=== PATIENT | female | born 1940 | race Caucasian/White ===

== ENCOUNTER 2017-01-08 12:01 | Emergency (ER) | payer MEDICARE ==
--- NOTE | 2017-01-08 12:09 | ED.PDOC ---
History of Present Illness - General Chief Complaint: Problem Stated Complaint: urinary frequency Time Seen by Provider: 01/08/17 12:05 Source: patient, RN notes reviewed, family Additional Information: Pt complaining of intermittent dry heaves with nausea, right lower quadrant abdominal discomfort, urinary frequency and foul smelling urine for the past few days. Also, she reports some baseline shortness of breath for which she takes inhaled steroids as well as prn bronchodilators. She states she forgot her albuterol at home. Pt thinks she may have a urinary tract infection and she would also like to know what is causing her abdominal pain. She reports normal bowel movements with most recent BM about 3 hours prior to arrival. - History of Present Illness Timing/Duration: getting worse - over the past few days Quality: moderate, sharpness Onset Location: RLQ Radiation: none Activites at Onset: none Prior abdominal problems: similar symptoms Allergies/Adverse Reactions: Allergies Butorphanol [From Stadol] Allergy (Verified 08/31/14 16:52) Home Medications: Ambulatory Orders Albuterol Sulfate [Proair Hfa] 2 puff INH Q6H PRN 01/08/17 Amlodipine Besylate [Norvasc] 2.5 mg PO DAILY 01/08/17 Aspirin [Aspirin Adult Low Dose] 81 mg PO DAILY 01/08/17 Budesonide-Formoterol Fumarate [Symbicort] 1 aer IN BID 01/08/17 Nitrofurantoin Monohydrate Mac [Macrobid] 100 mg PO BID #14 cap 01/08/17 Nortriptyline HCl 25 mg PO BEDTIME 01/08/17 Ondansetron Odt [Zofran ODT] 4 mg PO Q6HR PRN #20 tab 01/08/17 Valsartan-Hydrochlorothiazide [Valsartan/Hydrochlorothia 160-12.5 mg] 1 tab PO DAILY 01/08/17 Venlafaxine HCl [Venlafaxine HCl ER] 150 mg PO BEDTIME 01/08/17 Review of Systems - Review of Systems Constitutional: States: no symptoms reported EENTM: States: no symptoms reported Respiratory: States: see HPI, cough, short of breath Cardiology: States: no symptoms reported Gastrointestinal/Abdominal: States: see HPI, abdominal pain, nausea, vomiting Genitourinary: States: see HPI, dysuria, frequency Musculoskeletal: States: no symptoms reported Skin: States: no symptoms reported Neurological: States: no symptoms reported Endocrine: States: no symptoms reported Hematologic/Lymphatic: States: no symptoms reported Past Medical History (General) - Patient Medical History Hx Seizures: No Hx Stroke: No Hx Dementia: No Hx Asthma: Yes Hx of COPD: Yes Hx Cardiac Disorders: No Hx Congestive Heart Failure: No Hx Pacemaker: No Hx Hypertension: Yes Hx Thyroid Disease: No Hx Diabetes: No Hx Gastroesophageal Reflux: No Hx Renal Disease: No Hx Cancer: No Hx of HIV: No Hx Hepatitis C: No Hx MRSA: No - Vaccination History Hx Tetanus, Diphtheria Vaccination: Yes - Social History Hx Tobacco Use: Yes - Female History Patient : No Family Medical History - Family History Mother Family History: No Known Physical Exam - Physical Exam General Appearance: Alert, Frail, No apparent distress Eyes, Ears, Nose, Throat Exam: normal ENT inspection, pharynx normal Neck: non-tender, full range of motion, supple, normal inspection Cardiovascular/Respiratory: normal peripheral pulses, tachycardia - mild, accessory muscle use - mild, wheezing - diffuse Gastrointestinal/Abdominal: soft, tenderness - mild to moderate in RLQ Back Exam: normal inspection, no CVA tenderness Extremity: normal range of motion, non-tender, normal inspection Neurologic: air grinder II-XII nml as tested, no motor/sensory deficits, alert, normal mood/affect, oriented x 3 Skin Exam: normal color Lymphatic: no adenopathy Progress - Progress Progress: 01/08/17 13:40 Pt with signs and symptoms consistent with cystitis. Will obtain U/A and Urine Culture to confirm. Dyspnea and wheezing improved with breathing treatment. Given h/o rlq pain and h/o prior abdominal surgeries, will assess further with CT Scan for any evidence of gross pathology such as obstruction or diverticulitis to explain symptoms. - Results/Orders Results/Orders: 01/08/17 12:16 URINE CULTURE W/COLONY COUNT Stat 01/08/17 12:48 Sodium Chloride 0.9% 1000ML [Ns 1000 ml] 1,000 ml IVS ONCE 01/08/17 12:49 Hold Metformin x 48Hrs [id number] Abdomen/Pelvis w/Contrast [CT] Stat Laboratory Results - last 24 hr 01/08/17 01/08/17 12:16 12:57 WBC 12.3 H RBC 4.40 Hgb 13.3 Hct 39.7 MCV 90.1 MCH 30.3 MCHC 33.6 RDW 13.3 Plt Count 205 MPV 8.3 Absolute Neuts (auto) 8.50 H Absolute Lymphs (auto) 2.10 Absolute Monos (auto) 1.50 H Absolute Eos (auto) 0.20 Absolute Basos (auto) 0.10 Neutrophils % 69.3 Lymphocytes % 16.7 L Monocytes % 11.9 H Eosinophils % 1.6 Basophils % 0.5 Sodium 129 L Potassium 3.7 Chloride 94 L Carbon Dioxide 25 Anion Gap 13.7 BUN 28 H Creatinine 1.34 H BUN/Creatinine Ratio 20.9 H Random Glucose 121 H Serum Osmolality 265.7 L Calcium 9.2 Total Bilirubin 0.8 AST 21 ALT 16 Alkaline Phosphatase 115 Serum Total Protein 7.5 Albumin 4.2 Globulin 3.3 Albumin/Globulin Ratio 1.3 Urine Color Yellow Urine Appearance Cloudy Urine pH 6.0 Ur Specific [place] 1.015 Urine Protein Negative Urine Glucose (UA) Negative Urine Ketones Negative Urine Blood Trace-intact H Urine Nitrite Positive H Urine Bilirubin Negative Urine Urobilinogen 0.2 Ur Leukocyte Esterase Small H Urine RBC 1-3 Urine WBC 5-10 H Ur Epithelial Cells 1-3 Urine Bacteria 3+ H - EKG/XRAY/CT CT: Abd/Pelvis w/IV Contrast-see report for details. No evid of diverticulitis. Departure - Departure Clinical Impression: Chronic bronchitis, obstructive Urinary tract infection Qualifiers: Urinary tract infection type: acute cystitis Hematuria presence: without hematuria Qualifier Code: (N30.00) Acute cystitis without hematuria Time of Disposition: 14:10 Disposition: Discharge to Home or Self Care Condition: Good Instructions: DI for Urinary Tract Infection (UTI) Referrals: Aisha Soto NP [Primary Care Provider] - 1-2 Weeks Prescriptions: Ondansetron Odt [Zofran ODT] 4 mg PO Q6HR PRN #20 tab PRN Reason: Nausea/Vomiting Nitrofurantoin Monohydrate Mac [Macrobid] 100 mg PO BID #14 cap Home Medications: Ambulatory Orders Albuterol Sulfate [Proair Hfa] 2 puff INH Q6H PRN 01/08/17 Amlodipine Besylate [Norvasc] 2.5 mg PO DAILY 01/08/17 Aspirin [Aspirin Adult Low Dose] 81 mg PO DAILY 01/08/17 Budesonide-Formoterol Fumarate [Symbicort] 1 aer IN BID 01/08/17 Nitrofurantoin Monohydrate Mac [Macrobid] 100 mg PO BID #14 cap 01/08/17 Nortriptyline HCl 25 mg PO BEDTIME 01/08/17 Ondansetron Odt [Zofran ODT] 4 mg PO Q6HR PRN #20 tab 01/08/17 Valsartan-Hydrochlorothiazide [Valsartan/Hydrochlorothia 160-12.5 mg] 1 tab PO DAILY 01/08/17 Venlafaxine HCl [Venlafaxine HCl ER] 150 mg PO BEDTIME 01/08/17 Additional Instructions: Stay well hydrated with water - at least 1 to 2 liters a day. Take medicine as prescribed. Return to ER if condition worsens. Continue inhaler medicine as previously prescribed.
[2017-01-08] MEDS ORDERED: IPRATROPIUM/ALBUTEROL 3 ML VIAL NEB ONE (12:16)
[2017-01-08] MEDS ORDERED: SODIUM CHLORIDE 0.9% 1000ML 1,000 ML IVS ONE (12:48)
[2017-01-08] MEDS ORDERED: ONDANSETRON INJ 4 MG/2 ML VIAL IV ONE (12:48)
--- NOTE | 2017-01-08 13:59 | CT ---
PROCEDURE: Abdomen/Pelvis w/Contrast HISTORY: right lower quadrant abd pain Indication: Same as above Comparison: None . Technique: CT of the abdomen and pelvis was done with intravenous contrast. Images were obtained from the lung base to the level of the pubic symphysis in axial plane, followed by orthogonal sagittal and coronal reconstruction. Oral contrast was not given for the study. The patient was injected with contrast intravenously, without any documented immediate adverse reactions. FINDINGS: Images through the lung bases show mild parenchymal scarring in the lingula of the left lung and the left lower lobe of the lung. There is presence of a small hiatal hernia The liver, gallbladder, pancreas, spleen and the bilateral adrenal glands appear unremarkable. Benign cortical cysts are seen in the right kidney. The bilateral kidneys otherwise enhance with contrast in a normal fashion. The urinary bladder is unremarkable . The bilateral ureters and the bilateral periureteral soft tissues and fat planes are unremarkable. The small bowel appears unremarkable, without any evidence of small bowel obstruction or bowel wall thickening. A normal or an inflamed appendix is not seen. However there is no pericecal inflammatory change The ileocecal junction appears unremarkable. There is no CT evidence of acute colonic diverticulitis or colitis or large bowel obstruction. There is large bowel diverticulosis. The splenic and portal veins are of normal caliber, without any filling defects. There is no pathological lymphadenopathy in the retroperitoneum or in the pelvic region. There is no evidence of free fluid or free air in the abdomen or the pelvic region. There is no clinically significant abdominal aortic aneurysm. There is no clinically significant inguinal or ventral hernia. The visualized lumbar spine shows multilevel degenerative change . The paravertebral soft tissues are unremarkable. The remainder of the pelvic structures are unremarkable. IMPRESSION: A normal or an inflamed appendix is not seen. However there is no pericecal inflammatory change. There is large bowel diverticulosis without CT evidence of acute diverticulitis. There is presence of a small hiatal hernia Location of Interpretation: Teleradiology Electronically signed by: Chilango Pettit MD 01/08/2017 1:58 PM TRENCH DIGGING MACHINE OPERATOR
[2017-01-08 14:16] VITALS: TEMP 98.2
[2017-01-08 14:35] VITALS: BP 125/76; O2SAT 95
== END 2017-01-08 14:35 | disposition home or self-care (01) ==
LOC: ER 12:01
DX: N30.00 Acute cystitis without hematuria (principal); J44.9 Chronic obstructive pulmonary disease, unspecified; I10 Essential (primary) hypertension; R11.2 Nausea with vomiting, unspecified; Z79.899 Other long term (current) drug therapy; Z79.82 Long term (current) use of aspirin; Z88.8 Allergy status to other drugs, medicaments and biological substances; Z87.891 Personal history of nicotine dependence
CPT/HCPCS: 36415; 74177; 80053; 81001; 85025; 87086; 87088; 87186; 94640; J2405; J7030; J7620

== ENCOUNTER → 2017-02-10 | Outpatient (CLI) | payer MEDICARE | END | disposition home or self-care (01) | LOC: LAB.O 13:36 | PROVIDERS: ATTEND Nurse Practitioner Family | DX: N39.0 Urinary tract infection, site not specified (principal) ==

== ENCOUNTER → 2017-02-28 | Outpatient (CLI) | payer MEDICARE | END | disposition home or self-care (01) | LOC: GMAB 14:39 | PROVIDERS: ATTEND Family Medicine | DX: I10 Essential (primary) hypertension (principal) ==

== ENCOUNTER → 2017-03-10 | Outpatient (CLI) | payer MEDICARE ==
--- NOTE | 2017-03-10 10:34 | MAM ---
History: Well woman exam. Date of exam: 03/10/2017 Services provided: Bilateral full field digital screening mammography. CAD, the images were reviewed with R2 computer aided detection. FINDINGS: Glandular tissue is scattered glandular contour. No prior exam is available for comparison. 9 mm nodule right breast 5-6 o'clock approximately 10 to 11 cm from the nipple. Biopsy clip left breast 4:00. Grouped microcalcifications left breast 1:00. No associated distortion or soft tissue density. These are proximal three 6 to 7 cm from the nipple. IMPRESSION: Incomplete study Recommendation: True lateral view left breast with spot compression magnification views 1:00. Directed right breast sonography retroareolar 6:00, deep within the glandular tissue. BIRAD CATEGORY: 0 INCOMPLETE Electronically signed by: Michelle Quiles MD 03/10/2017 10:34 AM CDT
== END ==
LOC: MAMMO 07:38
PROVIDERS: ATTEND Family Medicine
DX: Z12.31 Encounter for screening mammogram for malignant neoplasm of breast (principal)

== ENCOUNTER → 2017-05-17 | Outpatient (CLI) | payer MEDICARE | LOC: YCFC.O 06:59 | PROVIDERS: ATTEND Nurse Practitioner Family | DX: E78.00 Pure hypercholesterolemia, unspecified (principal); N39.0 Urinary tract infection, site not specified; Z13.29 Encounter for screening for other suspected endocrine disorder ==

== ENCOUNTER → 2017-05-18 | Outpatient (CLI) | payer MEDICARE ==
--- NOTE | 2017-05-18 15:52 | MAM ---
EXAM DESCRIPTION: 3D Diagnostic, Left CLINICAL HISTORY: 76 yearsFemaleABNORMAL MAMMO . Possible nodule in the posterior inferior right breast. Abnormal calcifications central left breast.. COMPARISON: Digital screening bilateral examination 03/10/2017.. Report from prior examination also reviewed. TECHNIQUE: Bilateral CC and LM projection full-field images, 3-D tomosynthesis digital mammographic technique. Also bilateral synthesized CC/ MLO full-field images. Digital two-dimensional spot magnification images, central left breast. CAD not utilized. FINDINGS: The breast parenchymal density pattern is: Almost entirely fatty. No skin thickening or nipple retraction . Predominantly rounded group of calcifications, 230 clock position middle third left breast, 10 cm from the nipple. No associated focal asymmetry or mass density. The lesion at the 600 clock position of the posterior third of the right breast, is on the skin surface of the breast where it joins the abdominal wall. This is a skin mole similar color to the surrounding skin. No associated microcalcifications. IMPRESSION: BI-RADS CATEGORY: 2 - BENIGN FINDINGS. FOLLOW UP: Return to routine digital bilateral screening, one year interval from 2017. Written communication explaining the findings and follow-up, will be mailed to the patient and referring health care provider. According to the [employer], yearly mammograms are recommended starting at age 40 and continuing as long as a woman is in good health. Any breast change noted on a breast self-exam should be reported promptly to the patient's healthcare provider. Breast MRI is recommended for women with an approximately 20-25% or greater lifetime risk of breast cancer, including women with a strong family history of breast or ovarian cancer and women who have been treated for Hodgkin's disease. A negative mammographic report should not delay tissue diagnosis in patients with significant clinical history or physical findings. Extremely dense breast tissue limits the sensitivity of digital mammography. Electronically signed by: Rohit Quintana MD 05/18/2017 3:51 PM CDT Workstation: [id number]
== END ==
LOC: MAMMO 14:19
PROVIDERS: ATTEND Family Medicine
DX: R92.2 Inconclusive mammogram (principal)

== ENCOUNTER 2017-08-15 20:35 | Emergency (ER) | payer MEDICARE ==
[2017-08-15 21:01] VITALS: TEMP 98.4; O2SAT 94
--- NOTE | 2017-08-15 22:06 | CT ---
EXAM DESCRIPTION: Head CLINICAL HISTORY: fall with left temporal hematoma COMPARISON: None available TECHNIQUE: Axial CT images of the head obtained from the skull apex to the foramen magnum obtained without contrast. FINDINGS: No evidence of acute intracranial hemorrhage. No mass, mass effect, shift of the midline, abnormal extra-axial fluid collection, or CT evidence of acute ischemic change. Scattered areas of hypodensity throughout the supratentorial white matter suggestive of chronic white matter ischemic change. Calcifications O of the midline falx. Mild prominence of the ventricular system and sulcal spaces suggesting mild cerebral and cerebellar atrophy. Visualized paranasal sinuses demonstrate mild mucosal thickening of the ethmoid air cells. Mastoid air cells are well aerated. Atherosclerotic calcification of the intracranial internal carotid arteries. Visualized orbits and globes are unremarkable. Contusion and edema within the left frontal scalp soft tissues. No skull fracture identified. IMPRESSION: 1. No evidence of acute intracranial abnormality. 2. Contusion within the left frontal scalp soft tissues. This exam was performed according to our departmental dose-optimization program, which includes automated exposure control, adjustment of the mA and/or kV according to patient size and/or use of iterative reconstruction technique. Electronically signed by: Otoniel Foster 08/15/2017 10:05 PM CDT
--- NOTE | 2017-08-15 22:26 | ED.PDOC ---
History of Present Illness - General Chief Complaint: Head Injury Stated Complaint: tripped, hit head on wall Time Seen by Provider: 08/15/17 20:36 Source: patient Exam Limitations: no limitations - History of Present Illness Initial Comments: the patient is a 77-year-old female presenting to the emergency room secondary to falling in her house and hitting her left temporal area against a wall. No neck pain. No loss of consciousness. She didn't feel dazed for about a minute. No vomiting. She does have a significant hematoma over the left temporal area. No laceration.no neck pain Timing/Duration: momentarily Severity: moderate Improving Factors: nothing Worsening Factors: nothing Associated Symptoms: headaches Allergies/Adverse Reactions: Allergies Butorphanol [From Stadol] Allergy (Verified 08/15/17 21:01) Home Medications: Ambulatory Orders Albuterol Sulfate [Proair Hfa] 2 puff INH Q6H PRN 01/08/17 Amlodipine Besylate [Norvasc] 2.5 mg PO DAILY 01/08/17 Aspirin [Aspirin Adult Low Dose] 81 mg PO DAILY 01/08/17 Budesonide-Formoterol Fumarate [Symbicort] 1 aer IN BID 01/08/17 Nitrofurantoin Monohydrate Mac [Macrobid] 100 mg PO BID #14 cap 01/08/17 Nortriptyline HCl 25 mg PO BEDTIME 01/08/17 Ondansetron Odt [Zofran ODT] 4 mg PO Q6HR PRN #20 tab 01/08/17 Valsartan-Hydrochlorothiazide [Valsartan/Hydrochlorothia 160-12.5 mg] 1 tab PO DAILY 01/08/17 Venlafaxine HCl [Venlafaxine HCl ER] 150 mg PO BEDTIME 01/08/17 Review of Systems - Review of Systems Constitutional: States: no symptoms reported EENTM: States: no symptoms reported Respiratory: States: no symptoms reported Cardiology: States: no symptoms reported Gastrointestinal/Abdominal: States: no symptoms reported Genitourinary: States: no symptoms reported Musculoskeletal: States: no symptoms reported Skin: States: no symptoms reported Neurological: States: headache Endocrine: States: no symptoms reported Hematologic/Lymphatic: States: no symptoms reported Past Medical History (General) - Patient Medical History Hx Seizures: No Hx Stroke: No Hx Dementia: No Hx Asthma: Yes Hx of COPD: Yes Hx Cardiac Disorders: No Hx Congestive Heart Failure: No Hx Pacemaker: No Hx Hypertension: Yes Hx Thyroid Disease: No Hx Diabetes: No Hx Gastroesophageal Reflux: No Hx Renal Disease: No Hx Cancer: No Hx of HIV: No Hx Hepatitis C: No Hx MRSA: No Surgical History: appendectomy, Hysterectomy - Vaccination History Hx Tetanus, Diphtheria Vaccination: No Hx Influenza Vaccination: Yes Hx Pneumococcal Vaccination: Yes - Social History Hx Tobacco Use: Yes Hx Chewing Tobacco Use: No Hx Alcohol Use: No Hx Substance Use: No Hx Substance Use Treatment: No Hx Depression: No Feels Threatened In Home Enviroment: No Feels Threatened In a Relationship: No Hx Physical Abuse: No Hx Emotional Abuse: No Hx Suspected Abuse: No - Female History Patient : No Family Medical History - Family History Mother Family History: No Known Physical Exam - Physical Exam General Appearance: Alert, Comfortable, No apparent distress Eye Exam: bilateral normal Ears, Nose, Throat: hearing grossly normal, normal ENT inspection, normal pharynx Neck: full range of motion, supple Respiratory: no respiratory distress Cardiovascular/Chest: normal peripheral pulses, no edema Peripheral Pulses: radial,right: 2+, radial,left: 2+ Back Exam: normal inspection Extremity: normal range of motion, non-tender, normal inspection, no pedal edema , normal capillary refill Neurologic: compliance review officer II-XII nml as tested, alert, normal mood/affect, oriented x 3 Skin Exam: normal color - left temporal hematoma Comments: Vital Signs - 24 hr 08/15/17 20:40 Temperature 98.4 F Pulse Rate [ 88 monitor] Respiratory 16 Rate Blood Pressure 167/93 [Left Arm] O2 Sat by Pulse 94 L Oximetry Progress - Progress Progress: 08/15/17 22:25 the patient is a 77-year-old female presenting to the emergency room secondary to a fall giving her a left temporal area scalp hematoma. CT scan of the head is negative for any acute intracranial pathology. ER warnings were given for any change in mental status. She should expect bruising to track down the face over the next few days. Ambulate carefully. - EKG/XRAY/CT CT Ordered: Yes CT Interpretation Call Back: Yes Departure - Departure Clinical Impression: Hematoma Disposition: Discharge to Home or Self Care Condition: Fair Departure Forms: ED Discharge - Pt. Copy, Patient Portal Self Enrollment Instructions: DI for Trauma Diet: regular diet Activity: increase activity as tolerated Referrals: Román Carmichael MD [Primary Care Provider] - 1-2 Weeks Home Medications: Ambulatory Orders Albuterol Sulfate [Proair Hfa] 2 puff INH Q6H PRN 01/08/17 Amlodipine Besylate [Norvasc] 2.5 mg PO DAILY 01/08/17 Aspirin [Aspirin Adult Low Dose] 81 mg PO DAILY 01/08/17 Budesonide-Formoterol Fumarate [Symbicort] 1 aer IN BID 01/08/17 Nitrofurantoin Monohydrate Mac [Macrobid] 100 mg PO BID #14 cap 01/08/17 Nortriptyline HCl 25 mg PO BEDTIME 01/08/17 Ondansetron Odt [Zofran ODT] 4 mg PO Q6HR PRN #20 tab 01/08/17 Valsartan-Hydrochlorothiazide [Valsartan/Hydrochlorothia 160-12.5 mg] 1 tab PO DAILY 01/08/17 Venlafaxine HCl [Venlafaxine HCl ER] 150 mg PO BEDTIME 01/08/17 Additional Instructions: the patient is a 77-year-old female presenting to the emergency room secondary to a fall giving her a left temporal area scalp hematoma. CT scan of the head is negative for any acute intracranial pathology. ER warnings were given for any change in mental status. She should expect bruising to track down the face over the next few days. Ambulate carefully.
[2017-08-15 22:37] VITALS: BP 140/86
== END 2017-08-15 22:37 | disposition home or self-care (01) ==
LOC: ER 20:35
DX: S00.03XA Contusion of scalp, initial encounter (principal); J44.9 Chronic obstructive pulmonary disease, unspecified; I10 Essential (primary) hypertension; Z79.82 Long term (current) use of aspirin; Z79.899 Other long term (current) drug therapy; Z87.891 Personal history of nicotine dependence; W01.198A Fall on same level from slipping, tripping and stumbling with subsequent striking against other object, initial encounter; Y92.009 Unspecified place in unspecified non-institutional (private) residence as the place of occurrence of the external cause

== ENCOUNTER → 2018-03-13 | Outpatient (CLI) | payer MEDICARE | LOC: LAB.NP 11:01 | PROVIDERS: ATTEND Family Medicine | DX: I10 Essential (primary) hypertension (principal) ==

== ENCOUNTER → 2018-07-29 | Outpatient (CLI) | payer MEDICARE | LOC: GMATM 15:23 | PROVIDERS: ATTEND Nurse Practitioner Family | DX: R35.1 Nocturia (principal) ==

== ENCOUNTER 2019-10-20 11:57 | Emergency (ER) | payer MEDICARE, MEDICAID ==
[2019-10-20] MEDS ORDERED: methylPREDNISolone SODIUM SUC 125 MG/2 ML VIAL IV ONE (12:04)
[2019-10-20] MEDS ORDERED: IPRATROPIUM/ALBUTEROL 3 ML VIAL NEB ONE ×3 (12:04→12:44)
--- NOTE | 2019-10-20 12:07 | ED.PDOC ---
History of Present Illness - General Chief Complaint: Respiratory Problem Stated Complaint: SOB Time Seen by Provider: 10/20/19 11:58 Source: patient, RN notes reviewed, Vital Signs reviewed Exam Limitations: no limitations - History of Present Illness Comments: this is an 79-year-old white female who has history of asthma who presents to the emergency Department with complaints of shortness of breath over the past 24 hours. She states that it all started with an URI in the past week. She states that she has had a mild nonproductive cough and stuffiness throughout this past week. She has not seen her PCP for this. She is currently using her Symbicort and albuterol inhalers twice a day. She is not smoking. She did have a flu vaccine this year. She denies any myalgias currently. Patient denies a productive cough as well. She also denies having any fever currently.. Allergies/Adverse Reactions: Allergies Butorphanol [From Stadol] Allergy (Verified 08/15/17 21:01) Home Medications: Ambulatory Orders Aspirin [Aspirin Adult Low Dose] 81 mg PO DAILY 01/08/17 Budesonide-Formoterol Fumarate [Symbicort] 1 aer IN BID 01/08/17 Benzonatate Perles [Tessalon Perles] 100 mg PO Q8HR #30 cap 10/20/19 Cholecalciferol [Vitamin D-3] 5,000 unit PO DAILY 10/20/19 Citalopram Hydrobromide 10 mg PO DAILY 10/20/19 Ipratropium/Albuterol [Duoneb] 3 ml INH Q6HRS #100 vial 10/20/19 Losartan Potassium 100 mg PO DAILY 10/20/19 Prednisone 40 mg PO QAM #10 tab 10/20/19 Review of Systems - Review of Systems Constitutional: Denies: chills, fever, malaise EENTM: States: nose congestion. Denies: ear pain, ear discharge, nose pain, throat pain, throat swelling Respiratory: States: cough, short of breath, wheezing Cardiology: States: no symptoms reported. Denies: chest pain, edema Gastrointestinal/Abdominal: States: no symptoms reported Genitourinary: States: no symptoms reported Musculoskeletal: States: no symptoms reported Skin: States: no symptoms reported Neurological: States: no symptoms reported Endocrine: States: no symptoms reported Hematologic/Lymphatic: States: no symptoms reported All other Systems: Reviewed and Negative Past Medical History (General) - Patient Medical History Hx Seizures: No Hx Stroke: No Hx Dementia: No Hx Asthma: Yes Hx of COPD: Yes Hx Cardiac Disorders: No Hx Congestive Heart Failure: No Hx Pacemaker: No Hx Hypertension: Yes Hx Thyroid Disease: No Hx Diabetes: No Hx Gastroesophageal Reflux: No Hx Renal Disease: No Hx Cancer: No Hx of HIV: No Hx Hepatitis C: No Hx MRSA: No - Vaccination History Hx Tetanus, Diphtheria Vaccination: No Hx Influenza Vaccination: Yes Hx Pneumococcal Vaccination: Yes - Social History Hx Tobacco Use: Yes Hx Chewing Tobacco Use: No Hx Alcohol Use: No Hx Substance Use: No Hx Substance Use Treatment: No Hx Depression: No Hx Physical Abuse: No Hx Emotional Abuse: No Hx Suspected Abuse: No - Female History Patient : No Family Medical History - Family History Mother Family History: No Known Physical Exam - Physical Exam General Appearance: Alert, Obvious distress, Well Developed, Well Groomed, Well Hydrated, Well Nourished, Other - mild distress secondary to wheezing of breath. Eye Exam: bilateral normal ENT Exam: normal ENT inspection, TMs normal, pharynx normal, nasal congestion Neck: non-tender, full range of motion, supple, normal inspection, trachea midline Respiratory: chest non-tender, respiratory distress - mild use of the sensory muscles of breathing, wheezing - generalized, expiration - prolonged Cardiovascular/Chest: normal peripheral pulses, regular rate, rhythm, no edema, no gallop, no JVD, no murmur Gastrointestinal/Abdominal: normal bowel sounds, non tender, soft, no organomegaly Extremity: normal range of motion, non-tender, normal inspection, no pedal edema Neurologic: chronic specialist II-XII nml as tested, no motor/sensory deficits, alert, normal mood/affect, oriented x 3 Skin Exam: normal color, warm/dry Lymphatic: no adenopathy Progress - Progress Progress: 10/20/19 12:11 MDM: Asthma exacerbation, bronchitis, pneumonia, bronchospasm, URI, influenza,. Patient will be evaluated for pneumonia and flu. We will go ahead and treat her bronchospasm with 2 nebs as well as Solu-Medrol.. 10/20/19 12:45 atient's breath sounds are improved. She does have some slight wheezing in the upper lobes still. She would like to have another breathing treatment. Her x- ray is without any evidence of acute changes. 10/20/19 12:48 no evidence of flu. - Results/Orders Results/Orders: IMPRESSION: Chronic changes as above. No acute disease. Electronically signed by: Jocelin Blank MD 10/20/2019 12:28 PM [employer] Laboratory Tests 10/20/19 12:22 WBC 9.3 RBC 3.85 L Hgb 11.9 L Hct 35.5 L MCV 92.2 MCH 30.8 MCHC 33.5 RDW 13.5 Plt Count 234 MPV 9.0 Absolute Neuts (auto) 6.70 Absolute Lymphs (auto) 1.80 Absolute Monos (auto) 0.60 Absolute Eos (auto) 0.10 Absolute Basos (auto) 0.10 Neutrophils % 71.9 Lymphocytes % 19.4 L Monocytes % 6.7 Eosinophils % 1.1 Basophils % 0.9 Laboratory Tests 10/20/19 10/20/19 12:22 12:22 WBC 9.3 RBC 3.85 L Hgb 11.9 L Hct 35.5 L MCV 92.2 MCH 30.8 MCHC 33.5 RDW 13.5 Plt Count 234 MPV 9.0 Absolute Neuts (auto) 6.70 Absolute Lymphs (auto) 1.80 Absolute Monos (auto) 0.60 Absolute Eos (auto) 0.10 Absolute Basos (auto) 0.10 Neutrophils % 71.9 Lymphocytes % 19.4 L Monocytes % 6.7 Eosinophils % 1.1 Basophils % 0.9 Sodium 137 Potassium 3.5 L Chloride 103 Carbon Dioxide 23 Anion Gap 14.5 BUN 21 H Creatinine 1.47 H BUN/Creatinine Ratio 14.3 Random Glucose 185 H Serum Osmolality 281.6 Calcium 9.3 Total Bilirubin 0.7 AST 26 ALT 20 Alkaline Phosphatase 92 Serum Total Protein 6.6 Albumin 4.0 Globulin 2.6 Albumin/Globulin Ratio 1.5 influenza A and B are both negative Departure - Departure Clinical Impression: Asthma with exacerbation Qualifiers: Asthma severity: moderate Asthma persistence: unspecified Qualified Code(s): J45.901 - Unspecified asthma with (acute) exacerbation Time of Disposition: 13:09 Disposition: Discharge to Home or Self Care Condition: Good Departure Forms: ED Discharge - Pt. Copy, Patient Portal Self Enrollment Instructions: DI for Asthma -- Adult Referrals: Román Carmicheal MD [Active Staff] - 1-2 Weeks Prescriptions: Ipratropium/Albuterol [Duoneb] 3 ml INH Q6HRS #100 vial Benzonatate Perles [Tessalon Perles] 100 mg PO Q8HR #30 cap Prednisone 40 mg PO QAM #10 tab Home Medications: Ambulatory Orders Aspirin [Aspirin Adult Low Dose] 81 mg PO DAILY 01/08/17 Budesonide-Formoterol Fumarate [Symbicort] 1 aer IN BID 01/08/17 Benzonatate Perles [Tessalon Perles] 100 mg PO Q8HR #30 cap 10/20/19 Cholecalciferol [Vitamin D-3] 5,000 unit PO DAILY 10/20/19 Citalopram Hydrobromide 10 mg PO DAILY 10/20/19 Ipratropium/Albuterol [Duoneb] 3 ml INH Q6HRS #100 vial 10/20/19 Losartan Potassium 100 mg PO DAILY 10/20/19 Prednisone 40 mg PO QAM #10 tab 10/20/19 Additional Instructions: patient to continue current medications. We will add prednisone 40 mg daily for the next 5 days. Tessalon Perles can be taken every 8 hours as needed for cough. Continue follow-up with PCP in the next several days. Return to the ER if necessary.
--- NOTE | 2019-10-20 12:29 | RAD ---
EXAM: XR Chest, 1 View CLINICAL HISTORY: sob TECHNIQUE: Frontal view of the chest. COMPARISON: 09/19/1916. FINDINGS: Limitations: None. Lungs: The lungs are hyperinflated. Chronic interstitial changes present. No confluent consolidation. Pleural space: Unremarkable. No pneumothorax. Heart: Stable cardiac shadow. Mediastinum: Unremarkable. Bones/joints: Unremarkable. Vasculature: Stable aortic tortuosity. IMPRESSION: Chronic changes as above. No acute disease. Electronically signed by: Jocelin Blank MD 10/20/2019 12:28 PM MOTOR RACER
[2019-10-20 13:41] VITALS: BP 163/71; TEMP 98; O2SAT 100
== END 2019-10-20 13:35 | disposition home or self-care (01) ==
LOC: ER 11:57
DX: J45.901 Unspecified asthma with (acute) exacerbation (principal); J44.9 Chronic obstructive pulmonary disease, unspecified; I10 Essential (primary) hypertension; Z87.891 Personal history of nicotine dependence; Z79.82 Long term (current) use of aspirin; Z79.899 Other long term (current) drug therapy; Z88.8 Allergy status to other drugs, medicaments and biological substances
CPT/HCPCS: 36415; 71045; 80053; 85025; 87502; 94640; J2930; J7620

== ENCOUNTER 2019-10-25 08:15 | Emergency (ER) | payer MEDICARE, MEDICAID ==
[2019-10-25 08:26] VITALS: TEMP 98.6
--- NOTE | 2019-10-25 08:58 | RAD ---
EXAM DESCRIPTION: Chest,2 Views CLINICAL HISTORY: sob, copd COMPARISON: 10/25/2019 TECHNIQUE: PA/lateral FINDINGS/IMPRESSION: Background peripheral pleural parenchymal scarring/fibrosis. Interval mild increased peripheral airspace opacity within the left greater than right midlung may represent mild edema or pulmonary infiltrates. Trace bilateral pleural effusions (slightly increased). Bibasilar segmental atelectasis. No pneumothorax. The heart is at the upper limits of normal in size. No acute osseous abnormality. Electronically signed by: Caleb Day DO 10/25/2019 8:56 AM J2EE ARCHITECT
[2019-10-25 09:04] VITALS: BP 150/64; O2SAT 93
[2019-10-25] MEDS ORDERED: levoFLOXacin 500 MG TAB PO ONE (09:05)
[2019-10-25] MEDS ORDERED: FUROSEMIDE 40 MG TAB PO ONE (09:05)
--- NOTE | 2019-10-25 09:12 | ED.PDOC ---
History of Present Illness - General Chief Complaint: Respiratory Problem Stated Complaint: difficulty breathing Time Seen by Provider: 10/25/19 08:18 Source: patient Exam Limitations: no limitations - History of Present Illness Initial Comments: the patient is an 79-year-old female with a history of asthma and COPD presented secondary to a continued exacerbation. She was seen here about 5 days ago for the same problem. The patient was appropriately. On a steroid and she has been taking her breathing treatments appropriately. She does have some significant anxiety. The patient does have a little bit of swelling that is obvious from the steroid. She is actually shaky from the breathing treatments that she has just done. No significant wheezes. Chronic decreased air movement. Nares are red with clear rhinorrhea. She does obviously have an upper respiratory tract infection. No chest pain. The patient is pleasant and cooperative. Timing/Duration: 1 week Severity: moderate Improving Factors: nothing Worsening Factors: nothing Associated Symptoms: cough, shortness of breath Allergies/Adverse Reactions: Allergies Butorphanol [From Stadol] Allergy (Verified 08/15/17 21:01) Home Medications: Ambulatory Orders Aspirin [Aspirin Adult Low Dose] 81 mg PO DAILY 01/08/17 Budesonide-Formoterol Fumarate [Symbicort] 1 aer IN BID 01/08/17 Benzonatate Perles [Tessalon Perles] 100 mg PO Q8HR #30 cap 10/20/19 Cholecalciferol [Vitamin D-3] 5,000 unit PO DAILY 10/20/19 Citalopram Hydrobromide 10 mg PO DAILY 10/20/19 Ipratropium/Albuterol [Duoneb] 3 ml INH Q6HRS #100 vial 10/20/19 Losartan Potassium 100 mg PO DAILY 10/20/19 Prednisone 40 mg PO QAM #10 tab 10/20/19 Review of Systems - Review of Systems Constitutional: States: malaise EENTM: States: nose congestion Respiratory: States: cough, short of breath, wheezing Cardiology: States: edema Gastrointestinal/Abdominal: States: no symptoms reported Genitourinary: States: no symptoms reported Musculoskeletal: States: no symptoms reported Skin: States: no symptoms reported Neurological: States: anxiety Endocrine: States: no symptoms reported All other Systems: No Change from Baseline Past Medical History (General) - Patient Medical History Hx Seizures: No Hx Stroke: No Hx Dementia: No Hx Asthma: Yes Hx of COPD: Yes Hx Cardiac Disorders: No Hx Congestive Heart Failure: No Hx Pacemaker: No Hx Hypertension: Yes Hx Thyroid Disease: No Hx Diabetes: No Hx Gastroesophageal Reflux: No Hx Renal Disease: No Hx Cancer: No Hx of HIV: No Hx Hepatitis C: No Hx MRSA: No - Vaccination History Hx Tetanus, Diphtheria Vaccination: No Hx Influenza Vaccination: Yes - 2019 Hx Pneumococcal Vaccination: No - Social History Hx Tobacco Use: No Hx Chewing Tobacco Use: No Hx Alcohol Use: No Hx Substance Use: No Hx Substance Use Treatment: No Hx Depression: No Hx Physical Abuse: No Hx Emotional Abuse: No Hx Suspected Abuse: No - Female History Patient : No Family Medical History - Family History Mother Family History: No Known Physical Exam - Physical Exam General Appearance: Alert, Anxious Eye Exam: bilateral normal Ears, Nose, Throat: hearing grossly normal, normal pharynx, nasal congestion Neck: supple Respiratory: decreased breath sounds - chronic, accessory muscle use - mild Cardiovascular/Chest: normal peripheral pulses, regular rate, rhythm Peripheral Pulses: radial,right: 2+, radial,left: 2+ Gastrointestinal/Abdominal: non tender, soft Rectal Exam: deferred Back Exam: no CVA tenderness, no vertebral tenderness Extremity: normal range of motion, non-tender, normal inspection, normal capillary refill, pedal edema - =1 bilaterally Neurologic: granulizing machine operator II-XII nml as tested, alert, normal mood/affect - she is anxious over her medical problems, oriented x 3 Skin Exam: normal color Comments: Vital Signs - 24 hr 10/25/19 10/25/19 10/25/19 08:20 08:22 08:33 Temperature 98.6 F Pulse Rate [ 90 left brachial] Respiratory 24 24 22 Rate Blood Pressure 198/101 181/74 [left brachial] O2 Sat by Pulse 96 94 L Oximetry 10/25/19 10/25/19 09:02 09:12 Temperature 98.6 F Pulse Rate [ 71 71 left brachial] Respiratory 22 22 Rate Blood Pressure 150/64 150/64 [left brachial] O2 Sat by Pulse 93 L 93 L Oximetry rapid flu is negative. chest x-ray shows mild fluid overload. Progress - Progress Progress: 10/25/19 09:13 the patient's 79-year-old female that is presenting secondary to a persistent COPD exacerbation that appears to most likely been triggered by viral upper respiratory tract infection. She is breathing much better at this point now that she is able to relax a little bit. The patient does have some mild fluid retention likely due to the recent steroid requirement. She is being given a dose of Lasix here 1. She'll be written for 2 more pills to be taken over the coming week. Additionally given her COPD history, I'm going to place the patient on low-dose Levaquin primarily as a prophylactic measure. She is to continue her breathing treatments. I will also write her for 5 tablets of 20 mg prednisone. She is to simply have these on hand for future reactive airway exacerbations. The patient is to follow back up with her primary care doctor early next week. ER warnings were given. [email or web address] [email or web address] [phone] Departure - Departure Clinical Impression: COPD exacerbation, Anxiety disorder due to medical condition Disposition: Discharge to Home or Self Care Condition: Fair Departure Forms: ED Discharge - Pt. Copy, Patient Portal Self Enrollment Instructions: Exacerbation of COPD Diet: regular diet Activity: increase activity as tolerated Referrals: Aisha Soto NP [Primary Care Provider] - 1-2 Weeks Home Medications: Ambulatory Orders Aspirin [Aspirin Adult Low Dose] 81 mg PO DAILY 01/08/17 Budesonide-Formoterol Fumarate [Symbicort] 1 aer IN BID 01/08/17 Benzonatate Perles [Tessalon Perles] 100 mg PO Q8HR #30 cap 10/20/19 Cholecalciferol [Vitamin D-3] 5,000 unit PO DAILY 10/20/19 Citalopram Hydrobromide 10 mg PO DAILY 10/20/19 Ipratropium/Albuterol [Duoneb] 3 ml INH Q6HRS #100 vial 10/20/19 Losartan Potassium 100 mg PO DAILY 10/20/19 Prednisone 40 mg PO QAM #10 tab 10/20/19 Additional Instructions: the patient's 79-year-old female that is presenting secondary to a persistent COPD exacerbation that appears to most likely been triggered by viral upper respiratory tract infection. She is breathing much better at this point now that she is able to relax a little bit. The patient does have some mild fluid retention likely due to the recent steroid requirement. She is being given a dose of Lasix here 1. She'll be written for 2 more pills to be taken over the coming week. Additionally given her COPD history, I'm going to place the patient on low-dose Levaquin primarily as a prophylactic measure. She is to continue her breathing treatments. I will also write her for 5 tablets of 20 mg prednisone. She is to simply have these on hand for future reactive airway exacerbations. The patient is to follow back up with her primary care doctor early next week. ER warnings were given.
== END 2019-10-25 09:20 | disposition home or self-care (01) ==
LOC: ER 08:15
DX: J44.1 Chronic obstructive pulmonary disease with (acute) exacerbation (principal); F41.9 Anxiety disorder, unspecified; I10 Essential (primary) hypertension; Z79.899 Other long term (current) drug therapy; Z79.82 Long term (current) use of aspirin; Z88.8 Allergy status to other drugs, medicaments and biological substances

== ENCOUNTER 2020-02-13 17:19 | Emergency (ER) | payer MEDICARE, MEDICAID ==
--- NOTE | 2020-02-13 17:45 | ED.PDOC ---
History of Present Illness - General Chief Complaint: Chest Pain/DC Time Seen by Provider: 02/13/20 17:36 Source: patient, RN notes reviewed, Vital Signs reviewed, RN/MD Exam Limitations: no limitations - History of Present Illness Initial Comments: Pt is a 79 yo female with PMH of HTN, asthma and COPD that was sent to ED by her PCP for evaluation of chest pain. States that on Tuesday, 2 days ago, she had a 1 second episode of left upper chest pain that radiated to left shoulder, then resolved and has had no other CP since. States she has felt tired and nauseated past 2 days and took a Phenergen today at noon that resolved her nausea. Denies fever, cough, SOB or light headedness. States she was seen by an SERVICE TRAINER at her PCP clinic today and EKG was different than her previous so was sent to ED for evaluation. Allergies/Adverse Reactions: Allergies Butorphanol [From Stadol] Allergy (Verified 12/29/19 16:59) Home Medications: Ambulatory Orders Aspirin [Aspirin Adult Low Dose] 81 mg PO DAILY 01/08/17 Budesonide-Formoterol Fumarate [Symbicort] 1 aer IN BID 01/08/17 Benzonatate Perles [Tessalon Perles] 100 mg PO Q8HR #30 cap 10/20/19 Cholecalciferol [Vitamin D-3] 5,000 unit PO DAILY 10/20/19 Citalopram Hydrobromide 10 mg PO DAILY 10/20/19 Ipratropium/Albuterol [Duoneb] 3 ml INH Q6HRS #100 vial 10/20/19 Losartan Potassium 100 mg PO DAILY 10/20/19 Prednisone 40 mg PO QAM #10 tab 10/20/19 Review of Systems - Review of Systems Constitutional: Denies: chills, fever, weakness EENTM: Denies: nose congestion, throat pain Respiratory: Denies: cough, short of breath, stridor Cardiology: States: see HPI. Denies: edema, palpitations, syncope Gastrointestinal/Abdominal: States: nausea. Denies: abdominal pain, vomiting Genitourinary: Denies: dysuria, frequency, hematuria Musculoskeletal: Denies: back pain, neck pain Skin: States: no symptoms reported Neurological: Denies: headache, paresthesia All other Systems: Reviewed and Negative Past Medical History (General) - Patient Medical History Hx Seizures: No Hx Stroke: No Hx Dementia: No Hx Asthma: Yes Hx of COPD: Yes Hx Cardiac Disorders: No Hx Congestive Heart Failure: No Hx Pacemaker: No Hx Hypertension: Yes Hx Thyroid Disease: No Hx Diabetes: No Hx Gastroesophageal Reflux: No Hx Renal Disease: No Hx Cancer: No Hx of HIV: No Hx Hepatitis C: No Hx MRSA: No - Vaccination History Hx Tetanus, Diphtheria Vaccination: No Hx Influenza Vaccination: Yes - 2019 Hx Pneumococcal Vaccination: No - Social History Hx Tobacco Use: No Hx Chewing Tobacco Use: No Hx Alcohol Use: No Hx Substance Use: No Hx Substance Use Treatment: No Hx Depression: No Hx Physical Abuse: No Hx Emotional Abuse: No Hx Suspected Abuse: No - Female History Patient : No Family Medical History - Family History Mother Family History: No Known Physical Exam - Physical Exam General Appearance: Alert, Comfortable, No apparent distress Neck: non-tender, full range of motion, supple, normal inspection Respiratory: chest non-tender, lungs clear, normal breath sounds, no respiratory distress, no accessory muscle use Cardiovascular/Chest: regular rate, rhythm, no edema, no murmur Gastrointestinal/Abdominal: non tender, soft, no pulsatile mass Back Exam: normal inspection, no vertebral tenderness Extremity: normal range of motion, non-tender, no pedal edema, no calf tenderness Neurologic: no motor/sensory deficits, alert, normal mood/affect Skin Exam: normal color, warm/dry Progress - Progress Progress: 02/13/20 17:49 EKG--sinus rhythm with 1st degree AV block, OH interval 210. Rate 88. Normal QRS interval. No ST abnormality. Compared with previous EKG 12/29/2019 shows OH interval is slightly longer, other haq no dynamic changes 02/13/20 19:00 Pt presents to ED after having a 1 second episode of chest discomfort 48 hours ago. Has had no CP since. EKG, labs and CXR are rreassuring. Pt has had no CP, SOB in ED. She feels comfortable going home and I have recommended that she f/u with a casing material weigher within 3 days for continued outpatient evaluation. SRP given. - Results/Orders Results/Orders: EXAM DESCRIPTION: Chest,1 View CLINICAL HISTORY: 79 years Female chest pain COMPARISON: 12/29/2019. FINDINGS: The cardiomediastinal silhouette appears unremarkable. Atherosclerotic calcifications and tortuosity in the thoracic aorta. No consolidating infiltrates or pleural effusions. No pneumothorax. IMPRESSION: No acute abnormality is identified. 02/13/20 17:40 IV:Start .ONCE 02/13/20 17:45 EKG .ONCE Laboratory Results - last 24 hr 02/13/20 02/13/20 02/13/20 17:55 17:55 17:55 WBC 9.4 RBC 4.13 L Hgb 12.6 Hct 37.7 MCV 91.2 MCH 30.5 MCHC 33.4 RDW 14.5 Plt Count 221 MPV 8.7 Absolute Neuts (auto) 5.30 Absolute Lymphs (auto) 2.90 Absolute Monos (auto) 0.80 Absolute Eos (auto) 0.30 Absolute Basos (auto) 0.10 Neutrophils % 56.4 Lymphocytes % 31.2 Monocytes % 8.4 Eosinophils % 2.9 Basophils % 1.1 Sodium 137 Potassium 4.3 Chloride 104 Carbon Dioxide 23 Anion Gap 14.3 BUN 36 H Creatinine 1.69 H BUN/Creatinine Ratio 21.3 H Random Glucose 103 Serum Osmolality 282.4 Calcium 9.8 Total Bilirubin 0.7 AST 24 ALT 20 Alkaline Phosphatase 82 Troponin I 0.02 B-Natriuretic Peptide 140.0 H Serum Total Protein 7.4 Albumin 4.6 Globulin 2.8 Albumin/Globulin Ratio 1.6 Departure - Departure Clinical Impression: Atypical chest pain, Essential hypertension Time of Disposition: 18:59 Disposition: Discharge to Home or Self Care Condition: Good Departure Forms: ED Discharge - Pt. Copy, Patient Portal Self Enrollment Instructions: DI for Chest Pain Diet: low salt diet Activity: increase activity as tolerated Referrals: Aisha Soto NP [Primary Care Provider] - 1-2 Days Home Medications: Ambulatory Orders Aspirin [Aspirin Adult Low Dose] 81 mg PO DAILY 01/08/17 Budesonide-Formoterol Fumarate [Symbicort] 1 aer IN BID 01/08/17 Benzonatate Perles [Tessalon Perles] 100 mg PO Q8HR #30 cap 10/20/19 Cholecalciferol [Vitamin D-3] 5,000 unit PO DAILY 10/20/19 Citalopram Hydrobromide 10 mg PO DAILY 10/20/19 Ipratropium/Albuterol [Duoneb] 3 ml INH Q6HRS #100 vial 10/20/19 Losartan Potassium 100 mg PO DAILY 10/20/19 Prednisone 40 mg PO QAM #10 tab 10/20/19 Comments: You will need to follow up with a casing material weigher for continued evaluation
[2020-02-13 18:07] VITALS: TEMP 97.6
--- NOTE | 2020-02-13 18:48 | RAD ---
EXAM DESCRIPTION: Chest,1 View CLINICAL HISTORY: 79 years Female chest pain COMPARISON: 12/29/2019. FINDINGS: The cardiomediastinal silhouette appears unremarkable. Atherosclerotic calcifications and tortuosity in the thoracic aorta. No consolidating infiltrates or pleural effusions. No pneumothorax. IMPRESSION: No acute abnormality is identified. Electronically signed by: João Long MD 02/13/2020 6:47 PM CDT
[2020-02-13 19:15] VITALS: BP 154/87; O2SAT 97
== END 2020-02-13 19:16 | disposition home or self-care (01) ==
LOC: ER 17:19
DX: R07.89 Other chest pain (principal); I44.0 Atrioventricular block, first degree; J44.9 Chronic obstructive pulmonary disease, unspecified; J45.909 Unspecified asthma, uncomplicated; I10 Essential (primary) hypertension

== ENCOUNTER 2020-12-04 09:05 | Emergency (ER) | payer OTHER, MEDICAID ==
[2020-12-04] MEDS ORDERED: ONDANSETRON INJ 4 MG/2 ML VIAL IV ONE (09:47)
[2020-12-04] MEDS ORDERED: MECLIZINE HCL 12.5 MG TAB PO ONE (09:47)
--- NOTE | 2020-12-04 10:12 | ED.PDOC ---
History of Present Illness - General Chief Complaint: General Stated Complaint: Dizzyness, nausea, vomiting Time Seen by Provider: 12/04/20 09:47 Source: patient, RN notes reviewed, Vital Signs reviewed, family - son Exam Limitations: no limitations - History of Present Illness Initial Comments: Patient is an 80-year-old white female who presents with complaints of vertigo. Patient first noticed it last night and took 2 pills that she had leftover of her dizziness medicine. The symptoms resolved and she went to bed. When she awoke she noted that she had the vertigo again and try to get out of bed and slid to the floor. She vomited after she fell to the floor as she was continuing to be very dizzy. Her vertigo is worse with movement. It is better when she lies still and closes her eyes. This is similar to vertigo she has had in the past. Patient denies any other symptoms. Timing/Duration: constant, other - 16 hrs Severity: severe Improving Factors: medication - Meclizine Worsening Factors: movement Associated Symptoms: nausea/vomiting Allergies/Adverse Reactions: Allergies Butorphanol [From Stadol] Allergy (Verified 12/04/20 09:43) Home Medications: Ambulatory Orders Aspirin [Aspirin Adult Low Dose] 81 mg PO DAILY 01/08/17 Budesonide-Formoterol Fumarate [Symbicort] 1 aer IN BID 01/08/17 Cholecalciferol [Vitamin D-3] 5,000 unit PO DAILY 10/20/19 Desvenlafaxine [Desvenlafaxine ER] 100 mg PO 12/04/20 Meclizine HCl 25 mg PO Q6H #20 tab 12/04/20 Pantoprazole Sodium 40 mg PO 12/04/20 Valsartan 80 mg PO 12/04/20 Valsartan-Hydrochlorothiazide [Valsartan/Hydrochlorothia 160-25 mg] 1 tab PO 12/04/20 Review of Systems - Review of Systems Constitutional: States: no symptoms reported, see HPI. Denies: chills, fever, malaise, weakness EENTM: States: no symptoms reported. Denies: eye pain, blurred vision, double vision Respiratory: States: no symptoms reported. Denies: cough, short of breath, wheezing Cardiology: States: no symptoms reported. Denies: chest pain, palpitations, syncope Gastrointestinal/Abdominal: States: see HPI, nausea, vomiting. Denies: abdominal pain, diarrhea Genitourinary: States: no symptoms reported. Denies: dysuria, frequency Musculoskeletal: States: no symptoms reported. Denies: back pain, joint pain, neck pain Skin: States: no symptoms reported. Denies: change in color, rash Neurological: States: other - dizziness Endocrine: States: no symptoms reported. Denies: increased hunger, increased thirst, increased urine Hematologic/Lymphatic: States: no symptoms reported. Denies: blood clots, easy bleeding All other Systems: Reviewed and Negative Past Medical History (General) - Patient Medical History Hx Seizures: No Hx Stroke: No Hx Dementia: No Hx Asthma: Yes Hx of COPD: Yes Hx Cardiac Disorders: No Hx Congestive Heart Failure: No Hx Pacemaker: No Hx Hypertension: Yes Hx Thyroid Disease: No Hx Diabetes: No Hx Gastroesophageal Reflux: No Hx Renal Disease: No Hx Cancer: No Hx of HIV: No Hx Hepatitis C: No Hx MRSA: No - Vaccination History Hx Tetanus, Diphtheria Vaccination: No Hx Influenza Vaccination: Yes - 2019 Hx Pneumococcal Vaccination: No - Social History Hx Tobacco Use: No Hx Chewing Tobacco Use: No Hx Alcohol Use: No Hx Substance Use: No Hx Substance Use Treatment: No Hx Depression: No Hx Physical Abuse: No Hx Emotional Abuse: No Hx Suspected Abuse: No - Female History Patient : No Family Medical History - Family History Mother Family History: No Known Physical Exam - Physical Exam General Appearance: Alert, Anxious, Obvious distress, Well Developed, Well Groomed, Well Hydrated, Well Nourished Eye Exam: bilateral normal Ears, Nose, Throat: hearing grossly normal, normal ENT inspection, normal pharynx Neck: non-tender, full range of motion, supple Respiratory: chest non-tender, lungs clear, normal breath sounds, no respiratory distress, no accessory muscle use Cardiovascular/Chest: normal peripheral pulses, regular rate, rhythm, no edema, no gallop, no JVD, no murmur Peripheral Pulses: radial,right: 2+, radial,left: 2+ Gastrointestinal/Abdominal: normal bowel sounds, non tender, soft, no organomegaly, no pulsatile mass Back Exam: normal inspection, no CVA tenderness, no vertebral tenderness Extremity: normal range of motion, non-tender, normal inspection Neurologic: energy trader II-XII nml as tested, no motor/sensory deficits, alert, normal mood/affect, oriented x 3, other - no nystagmus Skin Exam: normal color, warm/dry Lymphatic: no adenopathy Progress - Progress Progress: Differential diagnosis: CVA, TIA, benign positional vertigo, labyrinthitis among others. 12/04/20 10:44 Patient symptoms completely resolved after meclizine. I suspect strongly that this is benign positional vertigo. I will discharge the patient home with a prescription for meclizine. I discussed this plan of care with the patient and her son and they voiced understanding and agreement. João Guthrie M.D. #[id number] Departure - Departure Clinical Impression: Vertigo Time of Disposition: 10:45 Disposition: Discharge to Home or Self Care Condition: Good Departure Forms: ED Discharge - Pt. Copy, Patient Portal Self Enrollment Diet: resume usual diet Activity: increase activity as tolerated Referrals: Aisha Soto NP [Primary Care Provider] - 1-5 Days Prescriptions: Meclizine HCl 25 mg PO Q6H #20 tab Home Medications: Ambulatory Orders Aspirin [Aspirin Adult Low Dose] 81 mg PO DAILY 01/08/17 Budesonide-Formoterol Fumarate [Symbicort] 1 aer IN BID 01/08/17 Cholecalciferol [Vitamin D-3] 5,000 unit PO DAILY 10/20/19 Desvenlafaxine [Desvenlafaxine ER] 100 mg PO 12/04/20 Meclizine HCl 25 mg PO Q6H #20 tab 12/04/20 Pantoprazole Sodium 40 mg PO 12/04/20 Valsartan 80 mg PO 12/04/20 Valsartan-Hydrochlorothiazide [Valsartan/Hydrochlorothia 160-25 mg] 1 tab PO 12/04/20
[2020-12-04 11:02] VITALS: BP 145/79; TEMP 97.9; O2SAT 97
== END 2020-12-04 10:51 | disposition home or self-care (01) ==
LOC: ER 09:05
DX: R42 Dizziness and giddiness (principal); I44.0 Atrioventricular block, first degree; J44.9 Chronic obstructive pulmonary disease, unspecified; I10 Essential (primary) hypertension; Z79.82 Long term (current) use of aspirin; Z79.899 Other long term (current) drug therapy; Z88.8 Allergy status to other drugs, medicaments and biological substances
CPT/HCPCS: 93005; J2405